=== PATIENT | male | born 1955 | race Caucasian/White ===

== ENCOUNTER 2018-07-14 16:06 | Emergency (ER) | payer OTHER ==
[~2018-07-14] VITALS: Wt 96.5 kg
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
[2018-07-14] MEDS ORDERED: IBUP800T48 PO (20:34)
[2018-07-14] MEDS ORDERED: ASPI325T30 PO (20:50)
[2018-07-14] MEDS ORDERED: LISI-471 PO (20:50)
[2018-07-14] MEDS ORDERED: NAPR-927 PO (20:51)
[2018-07-14 22:04] VITALS: BP 143/86; PULSE 76; RESP 16
== END 2018-07-14 21:30 | disposition home or self-care (01) ==
LOC: E/R 16:06
DX: S13.9XXA Sprain of joints and ligaments of unspecified parts of neck, initial encounter (principal); R40.2252 Coma scale, best verbal response, oriented, at arrival to emergency department; R40.2362 Coma scale, best motor response, obeys commands, at arrival to emergency department; R40.2142 Coma scale, eyes open, spontaneous, at arrival to emergency department; I10 Essential (primary) hypertension; G44.209 Tension-type headache, unspecified, not intractable; R93.0 Abnormal findings on diagnostic imaging of skull and head, not elsewhere classified; W07.XXXA Fall from chair, initial encounter; Y92.9 Unspecified place or not applicable
CPT/HCPCS: 70450; 72125